=== PATIENT | male | born 1990 | race Caucasian/White ===

== ENCOUNTER 2018-03-13 07:21 | Inpatient (IN) | payer OTHER ==
[~2018-03-13] VITALS: Ht 170.2 cm; Wt 84.4 kg
[2018-03-13] MEDS ORDERED: IOHEXOL-350 100 ML VIAL IV ONE ×2 (07:51→10:55)
[2018-03-13] MEDS ORDERED: IV NS 0.9% 250 ML IV ONE ×2 (07:51→10:55)
[2018-03-13] MEDS ORDERED: CT SWABBABLE VALVE TRANS SET 1 EA INFUS.SET MC ONE ×2 (07:51→10:55)
[2018-03-13 07:52] LABS: BASOPHILS % (AUTO) 0.3 % (0.0-2.0); HEMATOCRIT 44 % (39-51); HEMOGLOBIN 14.1 g/dL (13.5-17.5); LYMPHOCYTES # (AUTO) 1.4 /CMM (0.8-4.8); LYMPHOCYTES % (AUTO) 15.5 % (20.0-44.0); MEAN CORPUSCULAR HGB CONC 32 g/dl (31.0-36.0); MEAN CORPUSCULAR VOLUME 86 fL (80-96); MONOCYTES # (AUTO) 0.5 /CMM (0.1-1.30); MONOCYTES % (AUTO) 5.4 % (2.0-12.0); NEUTROPHILS # (AUTO) 6.7 /CMM (1.8-8.9); NEUTROPHILS % (AUTO) 75.8 % (43.0-81.0); PLATELET COUNT (AUTO) 211 /CMM (150-450); RED BLOOD CELL COUNT(AUTO) 5.12 MIL/uL (4.5-6.0); WHITE BLOOD COUNT (AUTO) 8.8 K/uL (4.3-11.0)
[2018-03-13] MEDS ORDERED: HEPARIN SODIUM, PORCINE 5000 UNITS/1 ML VIAL ONE (08:00)
[2018-03-13] MEDS ORDERED: HEPARIN INFUSION/D5W 500 ML IV PRN (08:00)
[2018-03-13] MEDS ORDERED: HEPARIN SODIUM, PORCINE 5000 UNITS/1 ML VIAL IV ONE ×2 (08:00→08:30)
[2018-03-13] MEDS ORDERED: HEPARIN INFUSION/D5W 500 ML IV ONE (08:00)
[2018-03-13 08:04] LABS: CALCIUM, SERUM 9.1 mg/dL (8.5-10.1); CREATININE 1.1 mg/dL (0.6-1.3)
--- NOTE | 2018-03-13 08:07 | NUR ---
CALLED NURSING MERCHANDISE FLOW TEAM MEMBER FOR ICU BED
[2018-03-13 08:13] LABS: TROPONIN I 0.184 ng/mL (0.00-0.056)
--- NOTE | 2018-03-13 08:17 | NUR ---
Pt made aware of plan of care. Heparin started as per protocol with VALENTINO Corona as secondary witness. Awaiting admission
[2018-03-13] MEDS ORDERED: CYCLOBENZAPRINE 10 MG TABLET PO ONE (08:30)
[2018-03-13] MEDS ORDERED: IBUPROFEN 600 MG TABLET PO ONE ×2 (08:30→08:33)
--- NOTE | 2018-03-13 08:32 | NUR ---
PANEL CALL PLACED. BLOCK TILE SETTER. AWAITING CALLBACK. Addendum: 03/13/18 at 0833 by HFOX CORRECTION: ADDY PLUMMER
[2018-03-13] MEDS ORDERED: CYCLOBENZAPRINE 10 MG TABLET ONE (08:33)
--- NOTE | 2018-03-13 08:45 | NUR ---
pt states "been having back pain/sciatica for a while-usually lay down when im not working" Status quo in no obvious distress states "feeling much better now" Conversing with family at bedside. Still awaiting room assignment. Medicated as per orders.
--- NOTE | 2018-03-13 08:54 | NUR ---
ICU 261
[2018-03-13 09:00] LABS: INR 1.03 (0.87-1.13)
[2018-03-13 09:01] LABS: D-DIMER 14.76 mg/L(FEU (0.17-0.50)
--- NOTE | 2018-03-13 09:13 | NUR ---
TELE ORDER RECEIVED FROM DR HURTADO: STAT 2D ECHO AND STAT JOVANI LOWER EXTREMITY VENOUS DOPPLER, CALL DR HURTADO WITH RESULTS. Addendum: 03/13/18 at [address] PATEL OF TELE ORDERS AND SHE STATES SHE WILL ENTER THEM
--- NOTE | 2018-03-13 09:24 | NUR ---
REPORT GIVEN TO VALENTINO BLANCO FOR [facility] ICU 261
[2018-03-13] MEDS ORDERED: ONDA4TAB8 PO (09:26)
[2018-03-13] MEDS ORDERED: OXYC-128 PO (09:26)
[2018-03-13] MEDS ORDERED: CYCL5TAB PO (09:26)
--- NOTE | 2018-03-13 09:31 | NUR ---
Pt transported to floor with RN and EMT in stable condition NO acute changes no obvious distess
--- NOTE | 2018-03-13 09:47 | NUR ---
CALLED DR QUINTANILLA [phone] (RADIOLOGY) FOR CONSULT.
--- NOTE | 2018-03-13 09:57 | NUR ---
Head Of Training And Development in to see pt. wanting CT of spine prior to transfer to floor.
--- NOTE | 2018-03-13 10:30 | NUR ---
Seen by Dr Laboy and Dr Byrd. Pt updated by both.
--- NOTE | 2018-03-13 10:50 | NUR ---
To CT scan then to ICU with RN
[2018-03-13] MEDS ORDERED: IV D5/ 0.9% NACL 1,000 ML IV PRN (11:30)
--- NOTE | 2018-03-13 11:30 | NUR ---
RN ADMITTING NOTES: Rec'd report from [facility] MERCURY CRACKING TESTER. Pt transferred via gurney accompanied by RN & VIOLIN MAKER HAND. Pt is A/O x 4, denies any pain/discomfort at this time. Placed on NC at 2lpm, sating at 99%. Placed on telemonitor, ST w/ RBBB 105 bpm. Has 3 IV line access, all flushing well: R AC G20, L AC G20 & R hand G20, SL. Pt oriented to room. Provided comfort & safety measures. Bed kept low & in locked pos. Call light placed w/in reach. Will cont to monitor & attend pt needs. Family at bedside.
[2018-03-13 11:31] VITALS: BP 140/83
[2018-03-13 11:37] VITALS: BP 140/83
--- NOTE | 2018-03-13 11:45 | NUR ---
Rec'd call from Dr. Almaguer (radiologist), relayed CT abd/pelvis w/ contrast result. Dr. Matute made aware about the findings. Per Dr. Matute, he will see the pt & talk to the family at bedside to discuss about the result & POC.
[2018-03-13 12:00] VITALS: BP 128/84
--- NOTE | 2018-03-13 12:15 | NUR ---
Pt seen & examined by Dr. Matute w/ family at bedside. Discussed current condition & POC. All concerns & questions were answered by the MD. ANGEL Saucedo made aware of POC/DCP c/o JESSE Sage.
[2018-03-13 13:00] VITALS: BP 125/88
[2018-03-13] MEDS ORDERED: ENOXAPARIN SODIUM 100 MG/ML DISP.SYRIN SQ SCH ×2 (13:00→21:00)
--- NOTE | 2018-03-13 13:02 | NUR ---
RN NOTE Dr. Matute in the unit, spoke with Dr. 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 Dr. Byrd contacted [facility], sent info: Facesheet, H&P and imaging reports but needs clarification for the findings from CT, made Radiology aware, awaiting for revision (previous reading saying uterus and ovaries). Dr. Matute aware for the plan of [facility] transfer. Sheryl hooks mgr aware for the plan of transfer too.
--- NOTE | 2018-03-13 13:06 | NUR ---
Pt's father Bhanu signed consent for transfer.
--- NOTE | 2018-03-13 13:40 | NUR ---
RN NOTE Dr. Byrd called again, said still waiting for transfer and mentioned manager case working for [facility] transfer too, said he will initialize transfer to [place] too. Informed Sheryl briefcase sewer and said it is ok, whoever will have bed first. elmer Saucedo the number of Dr. Byrd so she can call him too.
--- NOTE | 2018-03-13 13:45 | NUR ---
Spoke w/ Dr. Byrd over the phone re: DCP. He said that pt might be transferred to [facility]. Asked for pt's father contact info.
[2018-03-13 14:00] VITALS: BP 119/76
--- NOTE | 2018-03-13 14:00 | NUR ---
Pt seen & examined by ADDY Wilkins.
--- NOTE | 2018-03-13 14:16 | NUR ---
Gave report to VALENTINO Gloria ( [facility]) at [phone]
[2018-03-13 15:00] VITALS: BP 132/82
--- NOTE | 2018-03-13 15:14 | NUR ---
CARDIOLOGY NURSE PRACTITIONER NOTES: Pt was transferred to [facility] as ordered. Report given to Sydnee ROTOR CASTING MACHINE OPERATOR at [phone] (will be admitted at rm [id number]). DC documents including CD provided to the VALENTINO Gloria. Pt left in guarded condition via gurney. IV line access, flushing well, no s/sx of infection/infiltration noted. Family is aware re: transfer. No belongings noted.
--- NOTE | 2018-03-13 15:19 | NUR ---
RN NOTE Patient picked up by [facility] CCRN and EMT's. Informed Dr. Byrd and Dr. Matute re: the transfer. Primary RN given report to [facility] RN OTOLARYNGOLOGY and the marine transport professionals.
== END 2018-03-13 15:15 | disposition short-term general hospital (02) | DRG 134 ==
LOC: ER 07:23 → ICU 09:23
PROVIDERS: ADMIT Nurse Practitioner Acute Care; ATTEND Nurse Practitioner Acute Care
DX: I26.99 Other pulmonary embolism without acute cor pulmonale (principal); J96.01 Acute respiratory failure with hypoxia; I21.4 Non-ST elevation (NSTEMI) myocardial infarction; M54.30 Sciatica, unspecified side; I82.422 Acute embolism and thrombosis of left iliac vein; I82.3 Embolism and thrombosis of renal vein; K76.9 Liver disease, unspecified; D68.59 Other primary thrombophilia; C85.90 Non-Hodgkin lymphoma, unspecified, unspecified site
CPT/HCPCS: 36415; 71045-TC; 80048-TC; 83880; 84484-TC; 85025-TC; 85378-TC; 85730-TC; 87081-TC; 93307-TC; 93970-TC; A4606; J1644; J1650; J7042; J7050; Q9967; Z7610